=== PATIENT | female | born 1980 | race African-American/Black ===

== ENCOUNTER 2018-02-18 17:13 | Emergency (ER) | payer OTHER ==
[~2018-02-18] VITALS: Ht 165.1 cm; Wt 74.8 kg
[2018-02-18 19:30] VITALS: BP 120/70
[2018-02-18] MEDS ORDERED: ONDANSETRON HCL 4 MG/2 ML VIAL IM ONE (20:00)
[2018-02-18] MEDS ORDERED: MEPERIDINE HCL (50 MG/ML) 1 ML VIAL IM ONE (20:00)
== END 2018-02-18 20:35 | disposition home or self-care (01) ==
LOC: ER 17:27
DX: S33.5XXA Sprain of ligaments of lumbar spine, initial encounter (principal); S80.02XA Contusion of left knee, initial encounter; M79.605 Pain in left leg; M62.838 Other muscle spasm; W19.XXXA Unspecified fall, initial encounter; Y93.01 Activity, walking, marching and hiking; Y92.89 Other specified places as the place of occurrence of the external cause; Y99.8 Other external cause status
CPT/HCPCS: 20552; 72131; 73562; 96372; 99284; J2175; J2405

== ENCOUNTER 2018-03-09 16:53 | Emergency (ER) | payer OTHER ==
[~2018-03-09] VITALS: Ht 165.1 cm; Wt 77.1 kg
[2018-03-09 17:15] VITALS: BP 139/83
== END 2018-03-09 21:20 | disposition home or self-care (01) ==
LOC: ER 16:57
DX: M54.16 Radiculopathy, lumbar region (principal); Z88.0 Allergy status to penicillin